=== PATIENT | male | born 1940 | race Asian ===

== ENCOUNTER 2017-11-09 23:08 | Inpatient (IN) | payer MEDICAID, OTHER ==
[~2017-11-09] VITALS: Ht 165.1 cm; Wt 85.3 kg
[~2017-11-09 23:08] MED LIST: AMLO-27 PO; ASPI81CT89 PO; COZ50 PO; HYDR-1098 PO; LORA1TAB7; MECL-221 PO; MELO15TA11 PO; METF500T4 PO; TAMS0.4C96 PO
[2017-11-09 23:18] VITALS: BP 157/76
--- NOTE | 2017-11-09 23:23 | NUR ---
PT.AMBULATED TO [facility]
--- NOTE | 2017-11-10 00:07 | NUR ---
Patient ambulated to bed 12. RN evaluating patient at bedside.
--- NOTE | 2017-11-10 00:09 | NUR ---
PATIENT PRESENTS TO ED WITH URINARY FREQUENCY, FLANK PAIN X1 MONTH. PT DENIES N/V/D; SKIN IS PINK/WARM/DRY; AAOX4 WITH EVEN AND STEADY GAIT; LUNGS CLEAR BL; HR EVEN AND REGULAR; PT DENIES ANY FEVER, CP, SOB, OR COUGH AT THIS TIME; PATIENT STATES PAIN OF 10/10 AT THIS TIME; VSS; PATIENT POSITIONED FOR COMFORT; HOB ELEVATED; BEDRAILS UP X1; BED DOWN. ER MD MADE AWARE OF PT STATUS.
[2017-11-10] MEDS ORDERED: DIT5 PO (00:28)
[2017-11-10] MEDS ORDERED: FINA5TAB1 PO (00:28)
[2017-11-10] MEDS ORDERED: LOSA100T25 PO (00:28)
[2017-11-10] MEDS ORDERED: CLOP75TA55 PO (00:28)
[2017-11-10 00:47] LABS: APPEARANCE,URINE CLEAR (CLEAR); BILIRUBIN,URINE NEGATIVE (NEGATIVE); BLOOD, URINE 1+ (NEGATIVE); COLOR,URINE YELLOW (YELLOW); LEUKOCYTE ESTERASE ,URINE NEGATIVE (NEGATIVE); NITRITE, URINE NEGATIVE (NEGATIVE); PH,URINE 5.5 (5.0-9.0); UGLUCOSE NEGATIVE (NEGATIVE)
[2017-11-10 00:57] LABS: RBC,URINE NONE SEEN /HPF (0-5); WBC,URINE 0-5 (RARE) /HPF (0-5)
[2017-11-10] MEDS ORDERED: OXYBUTYNIN 5 MG TAB PO SCH (01:05)
[2017-11-10 01:24] LABS: BASOPHILS # (AUTO) 0.1 K/uL (0.00-0.22); BASOPHILS % (AUTO) 0.6 % (0.0-2.0); EOSINOPHILS # (AUTO) 3.1 K/uL (0-0.4); HEMATOCRIT 37.8 % (36-52); HEMOGLOBIN 12.9 g/dL (12.0-18.0); LYMPHOCYTES # (AUTO) 2.6 K/uL (2.0-11.5); LYMPHOCYTES % (AUTO) 14.6 % (20.5-51.1); MEAN CORPUSCULAR HEMOGLOBIN 32 pg (27-31); MEAN CORPUSCULAR HGB CONC 34 g/dL (33-37); MONOCYTES # (AUTO) 1.9 K/uL (0.8-1.0); MONOCYTES % (AUTO) 10.5 % (1.7-9.3); NEUTROPHILS # (AUTO) 10.2 K/uL (1.8-7.7); NEUTROPHILS % (AUTO) 56.9 % (42.2-75.2); PLATELET COUNT (AUTO) 339 K/uL (140-450); RED BLOOD CELL COUNT(AUTO) 4.06 MIL/uL (4.20-6.10); RED CELL DISTRIBUTION WIDTH 12.2 % (11.6-13.7)
--- NOTE | 2017-11-10 01:25 | NUR ---
MEDICATION UNAVAILABLE. ER MD AWARE.
[2017-11-10 01:31] LABS: WHITE BLOOD COUNT (AUTO) 17.9 K/uL (4.8-10.8)
[2017-11-10 01:32] LABS: EOSINOPHILS % (AUTO) 17.4 % (0.0-4.0)
--- NOTE | 2017-11-10 01:33 | NUR ---
Kathie kim in [facility] - 11/10/17 at 0133 by WILMA PATIENT BACK FROM CT
--- NOTE | 2017-11-10 01:35 | NUR ---
PATIENT TO CT
[2017-11-10 01:39] LABS: ALBUMIN 4.6 g/dL (3.4-5.0); ANION GAP 16.2 (8-16); ASPARTATE AMINOTRANSFERASE 59 U/L (15-37); CHLORIDE 83 mmol/L (98-107); CREATININE 1.9 mg/dL (0.7-1.3); GLUCOSE 143 mg/dL (74-106); LIPASE 174 U/L (73-393); TOTAL BILIRUBIN 0.7 mg/dL (0.0-1.0); UREA NITROGEN, BLOOD 26 mg/dL (7-18)
[2017-11-10 01:42] LABS: POTASSIUM 5.2 mmol/L (3.5-5.1); SODIUM SERUM 119 mmol/L (136-145)
--- NOTE | 2017-11-10 01:53 | NUR ---
PATIENT BACK FROM CT
[2017-11-10] MEDS ORDERED: NACL 0.9% 1,000 ML IV ONE (02:10)
--- NOTE | 2017-11-10 02:57 | NUR ---
SPOKE TO DR ROMERO, TO ADMIT THROUGH DR RUTH COLEMAN
[2017-11-10] MEDS ORDERED: ACETAMINOPHEN 325 MG TAB PO PRN (03:00)
[2017-11-10] MEDS ORDERED: HYDROcodone/APAP 7.5/325 MG 1 TAB PO PRN (03:00)
[2017-11-10] MEDS ORDERED: ONDANSETRON 4 MG/2 ML VIAL IVP PRN (03:00)
[2017-11-10 03:18] LABS: PROTHROMBIN TIME 10.6 secs (10.8-13.4)
[2017-11-10 03:29] LABS: CHOL/HDL RATIO 2.5 (1-4.5); FREE T4 (FREE THYROXINE) 1.15 ng/dL (0.76-1.46); PHOSPHORUS 3.9 mg/dL (2.5-4.9); THYROID STIMULATING HORMONE 3.05 uIU/mL (0.34-3.74)
--- NOTE | 2017-11-10 03:31 | NUR ---
PT ARRIVED AT UNIT VIA GURNEY, TRANSFERRED PT TO BED, PT TOLERATED WELL, RECEIVED BEDSIDE REPORT FROM ER NURSE SHARLENE RN, PT STABLE, NO DISTRESS NOTED, IV TO RAC 20G RUNNING NS BOLUS, INFUSING WELL, PT ON ROOM AIR NO SOB, FAMILY BY BEDSIDE, INITIAL ASSESSMENT DONE, ALL SAFETY PRECAUTION MET, WILL CONTINUE TO MONITOR.
[2017-11-10 03:50] VITALS: BP 162/70
--- NOTE | 2017-11-10 04:00 | NUR ---
Pt report given to IVAN GAO. Transfer of care at this time.
--- NOTE | 2017-11-10 04:25 | NUR ---
PT C/O DISCOMFORT WITH SUN, PT STATED WANTED THE SUN OUT, NOTIFIED DR. ULLOA REGARDING PT COMPLAINT, STATED UNDERSTANDING, TO D/C THE SUN AND LET PT USE URINAL TO URINATE. SUN D/C, PT TOLERATED WELL, CATH INTACT, PT THEN PROCEED TO PEE ON URINAL. URINATED 5ML OF URINE, PT TOLERATED WELL. WILL CONTINUE TO MONITOR.
[2017-11-10] MEDS ORDERED: DEXTROSE 50% 50 ML SYR IVP PRN (04:50)
[2017-11-10] MEDS ORDERED: amLODIPine 5 MG TAB ONE (05:15)
[2017-11-10] MEDS ORDERED: METOPROLOL 25 MG TAB ONE (05:17)
[2017-11-10] MEDS: METOPROLOL 25 MG TAB PO SCH ×3 (05:20→20:52)
[2017-11-10] MEDS: amLODIPine 5 MG TAB PO SCH ×2 (05:21→09:13)
[2017-11-10] MEDS: NACL 0.9% 1,000 ML IV SCH ×2 (05:24→20:30)
[2017-11-10] MEDS: BLOOD GLUCOSE MONITORING 1 DEV DEV FS SCH ×4 (06:07→20:54)
[2017-11-10] MEDS: INSULIN LISPRO SLIDING SCALE 100 UNITS/ML VIAL SUBQ PRN ×2 (06:08→18:33)
--- NOTE | 2017-11-10 06:10 | NUR ---
PT AMBULATED TO BATHROOM AND BACK TO BED, NO DISTRESS NOTED, CALL LIGHT WITHIN REACH, WILL CONTINUE TO MONITOR.
[2017-11-10 06:30] LABS: BASOPHILS # (AUTO) 0.1 K/uL (0.00-0.22); BASOPHILS % (AUTO) 0.3 % (0.0-2.0); EOSINOPHILS # (AUTO) 2.3 K/uL (0-0.4); EOSINOPHILS % (AUTO) 12.8 % (0.0-4.0); HEMATOCRIT 36.5 % (36-52); HEMOGLOBIN 12.4 g/dL (12.0-18.0); LYMPHOCYTES # (AUTO) 1.4 K/uL (2.0-11.5); LYMPHOCYTES % (AUTO) 7.8 % (20.5-51.1); MEAN CORPUSCULAR HEMOGLOBIN 32 pg (27-31); MEAN CORPUSCULAR HGB CONC 34 g/dL (33-37); MEAN CORPUSCULAR VOLUME 93.1 fL (80-94); MONOCYTES # (AUTO) 1.9 K/uL (0.8-1.0); MONOCYTES % (AUTO) 10.9 % (1.7-9.3); NEUTROPHILS # (AUTO) 12.1 K/uL (1.8-7.7); NEUTROPHILS % (AUTO) 68.2 % (42.2-75.2); PLATELET COUNT (AUTO) 314 K/uL (140-450); RED BLOOD CELL COUNT(AUTO) 3.92 MIL/uL (4.20-6.10); RED CELL DISTRIBUTION WIDTH 12.3 % (11.6-13.7); WHITE BLOOD COUNT (AUTO) 17.8 K/uL (4.8-10.8)
[2017-11-10 07:04] LABS: ANION GAP 14.9 (8-16); CARBON DIOXIDE 25.9 mmol/L (21-32); CHLORIDE 86 mmol/L (98-107); CREATININE 1.7 mg/dL (0.7-1.3); GLUCOSE 168 mg/dL (74-106); POTASSIUM 4.8 mmol/L (3.5-5.1); UREA NITROGEN, BLOOD 23 mg/dL (7-18)
--- NOTE | 2017-11-10 07:20 | NUR ---
ENDORSED PLAN OF CARE TO DAY SHIFT NURSE YAQUELIN RN, PT STABLE, NO DISTRESS NOTED, CALL LIGHT WITHIN REACH.
[2017-11-10 07:21] LABS: MAGNESIUM 1.7 mg/dL (1.8-2.4); PHOSPHORUS 3.6 mg/dL (2.5-4.9)
--- NOTE | 2017-11-10 07:22 | NUR ---
RECEIVED BEDSIDE REPORT FROM BANKING SERVICES ADVISOR NURSE. PATIENT IS AWAKE. ALERT AND ORIENTEDX2, HE KNOWS NAME AND BUT NOT AWARE OF DATE AND PLACE. NO COMPLAINTS AT THIS TIME. NO S/SX OF DISTRESS ON ROOM AIR. TELE MONITOR IN PLACE. IV IN R AC 20G INFUSING NS AT 80ML/HR. IV IS CLEAN, DRY, AND INTACT. SKIN IS INTACT. URINAL AT BEDSIDE. BED IN LOW POSITION,CALL LIGHT WITHIN REACH. BED ALARM ON. PATIENT NPO UNTIL ULTRASOUND AROUND 10AM. WILL CONTINUE TO MONITOR PATIENT.
[2017-11-10 08:00] VITALS: BP 126/54
[2017-11-10] MEDS ORDERED: metFORMIN 500 MG TAB PO SCH (08:00)
[2017-11-10 08:28] LABS: SODIUM SERUM 122 mmol/L (136-145)
--- NOTE | 2017-11-10 08:44 | NUR ---
PATIENT HAS BEEN SCREENED AND CATEGORIZED MODERATE NUTRITION RISK. PATIENT WILL BE SEEN WITHIN 3-5 DAYS OF ADMISSION. 11/12/17 - 11/14/[address]
[2017-11-10] MEDS ORDERED: LOSARTAN 50 MG TAB PO SCH (09:00)
[2017-11-10] MEDS: CLOPIDOGREL 75 MG TAB PO SCH (09:12)
[2017-11-10] MEDS: FINASTERIDE 5 MG TAB PO SCH (09:13)
[2017-11-10] MEDS: DOCUSATE SODIUM 100 MG GELCAP PO SCH ×2 (09:13→20:50)
[2017-11-10] MEDS: ASPIRIN 81 MG TAB.CHEW PO SCH (09:14)
--- NOTE | 2017-11-10 09:15 | NUR ---
ADMINISTERED MORNING MEDS. PATIENT TOLERATED MEDS WELL. NO COMPLAINTS AT THIS TIME. ULTRASOUND AT BEDSIDE. WILL CONTINUE TO MONITOR PATIENT.
--- NOTE | 2017-11-10 11:30 | NUR ---
PATIENT REFUSED BLE ULTRASOUND. ECHO IN THE ROOM, GETTING READY FOR THE ECHO. RECEIVED A URINE SAMPLE FROM THE PATIENT. WILL SEND TO LAB. WILL CONTINUE TO MONITOR PATIENT.
--- NOTE | 2017-11-10 11:41 | NUR ---
CM NOTE INITIAL REVIEW DONE
[2017-11-10 12:00] VITALS: BP 134/59
--- NOTE | 2017-11-10 13:50 | NUR ---
PATIENT CURRENTLY SLEEPING. NO S/SX OF DISTRESS ON ROOM AIR. BED IN LOW POSITION, CALL LIGHT WITHIN REACH, WILL CONTINUE TO MONITOR PATIENT.
[2017-11-10] MEDS ORDERED: MAG SULF 2000 MG/WATER PREMIX 50 ML IV SCH (14:29)
--- NOTE | 2017-11-10 15:02 | NUR ---
ADMINISTERED NEEDED MAGNESIUM. IV SITE IS CLEAN, DRY AND INTACT. PATIENT TOLERATING MEDS WELL. NO COMPLAINTS AT THIS TIME. PATIENT REQUESTED TO TALK TO HIS DAUGHTER AGAIN BUT NO ANSWER. WILL TRY TO CALL HER AGAIN LATER. BED IN LOW POSITION. CALL LIGHT WITHIN REACH. WILL CONTINUE TO MONITOR PATIENT.
[2017-11-10 16:00] VITALS: BP 149/56
--- NOTE | 2017-11-10 16:00 | NUR ---
PATIENT REFUSED TO PLACE SCDS ON. HE STATED THERE WAS NO NEED FOR SCDS.
--- NOTE | 2017-11-10 17:00 | NUR ---
PAGED DR MCKEON FROM [facility] REQUESTED FOR UPDATE OF LABS. NO CALL BACK. WILL TELL BALE TIE MACHINE OPERATOR NURSE TO AWAIT A CALL BACK.
[2017-11-10 18:10] LABS: CARBON DIOXIDE 26.5 mmol/L (21-32); CHLORIDE 89 mmol/L (98-107); CREATININE 1.4 mg/dL (0.7-1.3); GLUCOSE 147 mg/dL (74-106); SODIUM SERUM 125 mmol/L (136-145); UREA NITROGEN, BLOOD 24 mg/dL (7-18)
[2017-11-10 18:13] LABS: POTASSIUM 5.5 mmol/L (3.5-5.1)
--- NOTE | 2017-11-10 19:20 | NUR ---
ENDORSED PATIENT IN STABLE CONDITION. GAVE BOOK AUTHOR NURSE BEDSIDE REPORT.
--- NOTE | 2017-11-10 19:21 | NUR ---
RECEIVED BEDSIDE REPORT FROM DAY SHIFT NURSE YAQUELIN RN, PT STABLE, NO DISTRESS NOTED, IV TO RAC 20G RUNNING NS @ 50ML/HR, PT ON ROOM AIR, NO SOB, PT AMBULATED TO BATHROOM, GAIT STEADY, INITIAL ASSESSMENT DONE, ALL SAFETY PRECAUTION MET, WILL CONTINUE TO MONITOR.
[2017-11-10 20:00] VITALS: BP 130/60
--- NOTE | 2017-11-10 20:01 | NUR ---
PT STATED FEELING DIZZY, DR. ULLOA NOTIFIED, DR, STATED UNDERSTANDING AND WILL ORDER MEDICATION. WILL WAIT FOR ORDER TO GET THROUGH PHARMACY AND CONTINUE WITH ORDERS.
[2017-11-10] MEDS ORDERED: MECLIZINE 25 MG TAB PO PRN (20:05)
[2017-11-10] MEDS: OXYBUTYNIN 5 MG TAB PO SCH (20:50)
[2017-11-10] MEDS: TAMSULOSIN 0.4 MG CAP PO SCH (20:51)
--- NOTE | 2017-11-10 20:54 | NUR ---
DUE MEDICATION GIVEN, PT TOLERATED WELL, NO DISTRESS NOTED, WHEN ASKED IF PT IS STILL DIZZY, PT STATED HE IS NO LONGER DIZZY, PT RESTING ON BED, CALL LIGHT WITHIN REACH, WILL CONTINUE TO MONITOR.
--- NOTE | 2017-11-10 22:25 | NUR ---
PT KEEPS GOING TO THE RESTROOM TO URINATE DESPITE EDUCATED THAT WE NEED TO COLLECT URINE AND WE NEED TO DO STRICT INPUT AND OUTPUT
[2017-11-11] VITALS: BP 107/55
--- NOTE | 2017-11-11 00:20 | NUR ---
CHECKED ON PT, PT SLEEPING, NO DISTRESS NOTED, CALL LIGHT WITHIN REACH, WILL CONTINUE TO MONITOR.
--- NOTE | 2017-11-11 03:07 | NUR ---
PT GOT UP AND WENT TO THE BATHROOM, PT WOULD NOT URINATE ON URINAL, UNABLE TO GET ANY URINE SAMPLE, PT STATED HE CAN NOT URINATE IN THE URINAL AND TOLD THE NURSE TO GO AWAY, HE WANTS TO URINATE IN THE RESTROOM.
[2017-11-11 04:00] VITALS: BP 101/44
--- NOTE | 2017-11-11 04:02 | NUR ---
CHECKED ON PT, PT IN BED SLEEPING CALMLY, NO DISTRESS NOTED, CALL LIGHT WITHIN REACH, WILL CONTINUE TO MONITOR.
[2017-11-11] MEDS: BLOOD GLUCOSE MONITORING 1 DEV DEV FS SCH ×4 (06:07→20:52)
--- NOTE | 2017-11-11 06:07 | NUR ---
PT AMBULATED TO RESTROOM AND BACK, PT TOLERATED WELL, NO DISTRESS NOTED, CALL LIGHT WITHIN REACH, WILL CONTINUE TO MONITOR. URINE COLLECTED, SENT TO LAB.
[2017-11-11 07:17] LABS: BASOPHILS # (AUTO) 0.1 K/uL (0.00-0.22); BASOPHILS % (AUTO) 0.6 % (0.0-2.0); EOSINOPHILS # (AUTO) 2.2 K/uL (0-0.4); EOSINOPHILS % (AUTO) 15.9 % (0.0-4.0); HEMATOCRIT 34.4 % (36-52); HEMOGLOBIN 11.7 g/dL (12.0-18.0); LYMPHOCYTES # (AUTO) 1.7 K/uL (2.0-11.5); LYMPHOCYTES % (AUTO) 12.4 % (20.5-51.1); MEAN CORPUSCULAR HEMOGLOBIN 32 pg (27-31); MEAN CORPUSCULAR HGB CONC 34 g/dL (33-37); MEAN CORPUSCULAR VOLUME 93.8 fL (80-94); MONOCYTES # (AUTO) 1.2 K/uL (0.8-1.0); MONOCYTES % (AUTO) 8.4 % (1.7-9.3); NEUTROPHILS # (AUTO) 8.9 K/uL (1.8-7.7); NEUTROPHILS % (AUTO) 62.7 % (42.2-75.2); PLATELET COUNT (AUTO) 313 K/uL (140-450); RED BLOOD CELL COUNT(AUTO) 3.67 MIL/uL (4.20-6.10); RED CELL DISTRIBUTION WIDTH 12.2 % (11.6-13.7); WHITE BLOOD COUNT (AUTO) 14.1 K/uL (4.8-10.8)
--- NOTE | 2017-11-11 07:29 | NUR ---
ENDORSED PLAN OF CARE TO DAY SHIFT NURSE YAQUELIN RN, PT STABLE, NO DISTRESS NOTED, CALL LIGHT WITHIN REACH.
--- NOTE | 2017-11-11 07:31 | NUR ---
RECEIVED BEDSIDE REPORT FROM SKIP LOCATOR NURSE. PATIENT IS AWAKE, ALERT AND ORIENTEDX3. PATIENT SHOWS NO SIGNS OF DISTRESS ON ROOM AIR. IV ON RAC SL. IV ON L FOREARM INFUSING NS AT 50ML/HR. IV SITE IS CLEAN, DRY AND INTACT. CARDIAC CATHETER IN PLACE. URINAL AT BEDSIDE. BED IN LOW POSITION. CALL LIGHT WITHIN REACH, WILL CONTINUE TO MONITOR PATIENT.
[2017-11-11 07:34] LABS: ANION GAP 18.7 (8-16); CARBON DIOXIDE 19.1 mmol/L (21-32); CHLORIDE 90 mmol/L (98-107); CREATININE 1.4 mg/dL (0.7-1.3); GLUCOSE 142 mg/dL (74-106); POTASSIUM 4.8 mmol/L (3.5-5.1); UREA NITROGEN, BLOOD 22 mg/dL (7-18)
[2017-11-11 08:00] VITALS: BP 118/58
[2017-11-11 08:37] LABS: SODIUM SERUM 123 mmol/L (136-145)
[2017-11-11] MEDS: ASPIRIN 81 MG TAB.CHEW PO SCH (09:03)
[2017-11-11] MEDS: amLODIPine 5 MG TAB PO SCH (09:04)
[2017-11-11] MEDS: FINASTERIDE 5 MG TAB PO SCH (09:04)
[2017-11-11] MEDS: DOCUSATE SODIUM 100 MG GELCAP PO SCH ×2 (09:04→20:58)
[2017-11-11] MEDS: CLOPIDOGREL 75 MG TAB PO SCH (09:04)
[2017-11-11] MEDS: METOPROLOL 25 MG TAB PO SCH ×2 (09:05→20:58)
--- NOTE | 2017-11-11 09:14 | NUR ---
ADMINISTERED MORNING MEDS. PATIENT TOLERATED MEDS WELL. STRICT NO WATER ORDERED BY DOCTOR IN PLACE. REMOVED WATER FROM TABLE. EDUCATED PATIENT ON NO WATER DIET. HE VERBALIZED UNDERSTANDING BUT WILL CONTINUE TO EDUCATE PATIENT. NO COMPLAINTS AT THIS TIME. BED IN LOW POSITION. CALL LIGHT WITHIN REACH.
--- NOTE | 2017-11-11 10:46 | NUR ---
PATIENT COMPLAINS OF DIZZINESS. ADMINISTERED PRN MEDICATIONS. EDUCATED THE PATIENT ON THE IMPORTANCE OF SITTING DOWN AND STAYING IN BED IF HE FEELS DIZZY. PATIENT VERBALIZED UNDERSTANDING BUT REINFORCEMENT NEEDED. WILL CONTINUE TO MONITOR PATIENT. PLACED THE URINAL BACK AT BEDSIDE.
--- NOTE | 2017-11-11 11:26 | NUR ---
PATIENT CURRENTLY SLEEPING. NO S/SX OF DISTRESS ON ROOM AIR. BED IN LOW POSITION. CALL LIGHT WITHIN REACH, WILL CONTINUE TO MONITOR PATIENT.
[2017-11-11 12:00] VITALS: BP 123/47
[2017-11-11 12:31] LABS: URINE SODIUM, RANDOM 37 mmol/l (40-220)
[2017-11-11 12:37] LABS: CREATININE,URINE RANDOM 80 mg/dL (30-125)
[2017-11-11] MEDS ORDERED: SODIUM CHLORIDE 1 GM TAB PO SCH (13:00)
--- NOTE | 2017-11-11 13:02 | NUR ---
ADMINISTERED PRN SALT TABLETS. PATIENT TOLERATED MEDS WELL. FAMILY AT BEDSIDE. NO COMPLAINTS AT THIS TIME. WILL CONTINUE TO MONITOR PATIENT.
[2017-11-11] MEDS: NACL 0.9% 1,000 ML IV SCH (14:47)
--- NOTE | 2017-11-11 14:50 | NUR ---
PATIENT IS SLEEPING. NO S/SX OF DISTRESS ON ROOM AIR. BED IN LOW POSITION. CALL LIGHT WITHIN REACH. WILL CONTINUE TO MONITOR PATIENT.
[2017-11-11 16:00] VITALS: BP 122/49
[2017-11-11] MEDS: SODIUM CHLORIDE 1 GM TAB PO SCH (16:58)
--- NOTE | 2017-11-11 17:03 | NUR ---
REMOVED RIGHT AC IV. IV WAS INTACT. NO COMPLAINTS. ADMINISTERED MEDS ORDERED. PATIENT TOLERATED MEDS WELL. WILL CONTINUE TO MONITOR PATIENT.
[2017-11-11 17:28] LABS: ANION GAP 15.4 (8-16); CARBON DIOXIDE 24.7 mmol/L (21-32); CHLORIDE 91 mmol/L (98-107); CREATININE 1.4 mg/dL (0.7-1.3); GLUCOSE 137 mg/dL (74-106); POTASSIUM 5.1 mmol/L (3.5-5.1); SODIUM SERUM 126 mmol/L (136-145); UREA NITROGEN, BLOOD 24 mg/dL (7-18)
--- NOTE | 2017-11-11 19:30 | NUR ---
RECEIVED PATIENT REPORT AT BEDSIDE. PATIENT AWAKE AND ALERT IN BED. NO S/S OF DISTRESS. PATIENT ON ROOM AIR. NO SOB. IV LINE NOTED TO THE LEFT FOREARM WITH IVF INFUSING WELL. PATIENT ON TELE MONITORING. FALL PRECAUTIONS IN PLACE. WILL CONTINUE TO MONITOR
--- NOTE | 2017-11-11 19:45 | NUR ---
GAVE FLOOR TILING PROFESSIONAL NURSE REPORT. PATIENT IS IN STABLE CONDITION.
[2017-11-11 20:55] VITALS: BP 165/67
[2017-11-11] MEDS: TAMSULOSIN 0.4 MG CAP PO SCH (20:58)
[2017-11-11] MEDS: OXYBUTYNIN 5 MG TAB PO SCH (20:58)
[2017-11-11] MEDS: INSULIN LISPRO SLIDING SCALE 100 UNITS/ML VIAL SUBQ PRN (20:59)
--- NOTE | 2017-11-11 23:29 | NUR ---
PATIENT ASLEEP IN BED. NO S/S OF DISTRESS NOTED
[2017-11-12] VITALS: BP 97/35
--- NOTE | 2017-11-12 | NUR ---
PATIENT'S BP 97/35. PATIENT AWAKE IN BED. NO S/S OF DISTRESS. PATIENT DENIES ANY DISCOMFORT. NOTIFIED DR ULLOA. NO NEW ORDERS. WILL CONTINUE TO MONITOR
--- NOTE | 2017-11-12 02:00 | NUR ---
PATIENT AWAKE AND AMBULATED TO THE BATHROOM TO VOID. PATIENT WAS PROVIDED A URINAL BUT DOES NOT USE IT.
[2017-11-12 04:00] VITALS: BP 131/51
[2017-11-12] MEDS: BLOOD GLUCOSE MONITORING 1 DEV DEV FS SCH ×4 (06:07→20:25)
--- NOTE | 2017-11-12 07:29 | NUR ---
PATIENT REPORT GIVEN AT BEDSIDE. PATIENT ENDORSED IN STABLE CONDITION
--- NOTE | 2017-11-12 07:50 | NUR ---
ENDORSEMENT RECEIVED FROM LIFE TESTER OUTBOARD MOTORS NURSE. PATIENT IS AWAKE, ALERT. RESPIRATION EVEN, UNLABOR ON ROOM AIR. SKIN DRY AND WARM. IV PATENT AND INTACT. DENIED PAIN, SOB, N/V. COMPLAINED OF DIFFICULTY URINATING, WILL CONTINUE TO MONITOR. PLAN OF CARE WAS DISCUSSED WITH PATIENT. BED AT LOW POSITION, SIDE RAILS UP. CALL LIGHT WITHIN REACH.
[2017-11-12 08:00] VITALS: BP_SYST 117; BP_SYST 143; BP_DIAS 51; BP_DIAS 62
[2017-11-12 08:44] LABS: BASOPHILS # (AUTO) 0.1 K/uL (0.00-0.22); EOSINOPHILS # (AUTO) 2.7 K/uL (0-0.4); HEMATOCRIT 33.8 % (36-52); HEMOGLOBIN 11.5 g/dL (12.0-18.0); LYMPHOCYTES % (AUTO) 14.8 % (20.5-51.1); MEAN CORPUSCULAR HEMOGLOBIN 32 pg (27-31); MEAN CORPUSCULAR HGB CONC 34 g/dL (33-37); MEAN CORPUSCULAR VOLUME 94.9 fL (80-94); MONOCYTES # (AUTO) 1.3 K/uL (0.8-1.0); MONOCYTES % (AUTO) 9.5 % (1.7-9.3); NEUTROPHILS # (AUTO) 7.3 K/uL (1.8-7.7); NEUTROPHILS % (AUTO) 54.5 % (42.2-75.2); PLATELET COUNT (AUTO) 339 K/uL (140-450); RED BLOOD CELL COUNT(AUTO) 3.57 MIL/uL (4.20-6.10); RED CELL DISTRIBUTION WIDTH 12.1 % (11.6-13.7); WHITE BLOOD COUNT (AUTO) 13.4 K/uL (4.8-10.8)
[2017-11-12] MEDS ORDERED: SODIUM CHLORIDE 1 GM TAB PO SCH (09:00)
[2017-11-12 09:06] LABS: ANION GAP 14.2 (8-16); CARBON DIOXIDE 25.8 mmol/L (21-32); CHLORIDE 91 mmol/L (98-107); CREATININE 1.3 mg/dL (0.7-1.3); GLUCOSE 134 mg/dL (74-106); SODIUM SERUM 126 mmol/L (136-145); UREA NITROGEN, BLOOD 20 mg/dL (7-18)
[2017-11-12 09:17] LABS: EOSINOPHILS % (AUTO) 20.2 % (0.0-4.0)
[2017-11-12] MEDS: SODIUM CHLORIDE 1 GM TAB PO SCH ×3 (09:56→17:01)
[2017-11-12] MEDS: DOCUSATE SODIUM 100 MG GELCAP PO SCH ×2 (09:56→20:22)
[2017-11-12] MEDS: amLODIPine 5 MG TAB PO SCH (09:57)
[2017-11-12] MEDS: ASPIRIN 81 MG TAB.CHEW PO SCH (09:58)
[2017-11-12] MEDS: FINASTERIDE 5 MG TAB PO SCH (09:58)
[2017-11-12] MEDS: CLOPIDOGREL 75 MG TAB PO SCH (09:58)
[2017-11-12] MEDS: NACL 0.9% 1,000 ML IV SCH (11:05)
--- NOTE | 2017-11-12 11:52 | NUR ---
PATIENT IS SLEEPING COMFORTABLY, EASILY AROUSABLE BY NAME. RESPIRATION EVEN, UNLABOR ON ROOM AIR. DENIED PAIN AT THIS TIME. NO DISTRESS NOTED. CALL LIGHT WITHIN REACH
[2017-11-12 12:00] VITALS: BP 143/62
[2017-11-12] MEDS: INSULIN LISPRO SLIDING SCALE 100 UNITS/ML VIAL SUBQ PRN ×3 (12:30→21:11)
--- NOTE | 2017-11-12 14:45 | NUR ---
BLADDER SCAN WAS DONE, 553 ML OF URINE WAS NOTED. PATIENT COMPLAINED OF DYSURIA, AND BLADDER PAIN. DR. SCOTT WAS MADE AWARE.
--- NOTE | 2017-11-12 15:16 | NUR ---
SUN WAS INSERTED. 500ML OF URINE, CLEAR, EDWARD COLOR WAS DRAINED. PATIENT TOLERATED WELL
[2017-11-12 16:00] VITALS: BP 130/67
--- NOTE | 2017-11-12 16:27 | NUR ---
PATIENT IS SLEEPING COMFORTABLY. RESPIRATION EVEN, UNLABOR ON ROOM AIR. NO DISTRESS NOTED. VS IS STABLE. CALL LIGHT WITHIN REACH.
--- NOTE | 2017-11-12 18:43 | NUR ---
PATIENT AWAKE, ALERT. RESPIRATION EVEN, UNLABOR ON ROOM AIR. IV PATENT AND INTACT. NO DISTRESS NOTED AT THIS TIME. CALL LIGHT WITHIN REACH
--- NOTE | 2017-11-12 19:14 | NUR ---
ENDORSEMENT GIVEN TO PACKING LINE WORKER NURSE. PATIENT IS STABLE AT THIS TIME.
--- NOTE | 2017-11-12 19:30 | NUR ---
RECEIVED PATIENT REPORT AT BEDSIDE. PATIENT AWAKE AND ALERT IN BED. NO S/S OF DISTRESS. PATIENT ON ROOM AIR. NO SOB. SUN CATHETER IN PLACE, DRAINING CLEAR YELLOW URINE. PATIENT ON TELE MONITORING. FALL PRECAUTIONS IN PLACE. WILL CONTINUE TO MONITOR
[2017-11-12 19:49] VITALS: BP 121/61
[2017-11-12] MEDS: TAMSULOSIN 0.4 MG CAP PO SCH (20:22)
[2017-11-12] MEDS: OXYBUTYNIN 5 MG TAB PO SCH (20:22)
--- NOTE | 2017-11-12 23:06 | NUR ---
PATIENT ASLEEP IN BED. NO S/S OF DISTRESS NOTED
[2017-11-13] VITALS: BP 135/62
--- NOTE | 2017-11-13 02:00 | NUR ---
PATIENT ASLEEP IN BED. NO S/S OF DISTRESS NOTED
[2017-11-13 04:00] VITALS: BP 125/58
--- NOTE | 2017-11-13 04:30 | NUR ---
PATIENT CURRENTLY SLEEPING. NO S/SX OF DISTRESS ON ROOM AIR. BED IN LOW POSITION. CALL LIGHT WITHIN REACH, WILL CONTINUE TO MONITOR PATIENT.
[2017-11-13] MEDS: BLOOD GLUCOSE MONITORING 1 DEV DEV FS SCH ×3 (06:13→16:19)
--- NOTE | 2017-11-13 07:17 | NUR ---
PATIENT REPORT GIVEN AT BEDSIDE. PATIENT ENDORSED IN STABLE CONDITION
--- NOTE | 2017-11-13 07:30 | NUR ---
ENDORSEMENT RECEIVED FROM TRAILER CHIEF NURSE. PATIENT AWAKE, ALERT. RESPIRATION EVEN, UNLABOR ON ROOM AIR. SKIN DRY AND WARM. IV PATENT AND INTACT. DENIED PAIN AT THIS TIME. SUN DRAINING WELL. VS IS STABLE. PLAN OF CARE WAS DISCUSSED WITH PATIENT. BED AT LOW POSITION, SIDE RAILS UP. CALL LIGHT WITHIN REACH
[2017-11-13 08:00] VITALS: BP 162/71
[2017-11-13 08:25] LABS: HEMOGLOBIN 11.3 g/dL (12.0-18.0); MEAN CORPUSCULAR HEMOGLOBIN 32 pg (27-31); RED BLOOD CELL COUNT(AUTO) 3.49 MIL/uL (4.20-6.10); RED CELL DISTRIBUTION WIDTH 11.3 % (11.6-13.7)
[2017-11-13 08:36] LABS: HEMATOCRIT 32.9 % (36-52); MEAN CORPUSCULAR HGB CONC 34 g/dL (33-37); MEAN CORPUSCULAR VOLUME 94.3 fL (80-94); PLATELET COUNT (AUTO) 326 K/uL (140-450); WHITE BLOOD COUNT (AUTO) 13.7 K/uL (4.8-10.8)
[2017-11-13 08:43] LABS: ANION GAP 11.7 (8-16); CARBON DIOXIDE 26.8 mmol/L (21-32); CHLORIDE 96 mmol/L (98-107); CREATININE 1.2 mg/dL (0.7-1.3); GLUCOSE 125 mg/dL (74-106); POTASSIUM 4.5 mmol/L (3.5-5.1); SODIUM SERUM 130 mmol/L (136-145); UREA NITROGEN, BLOOD 16 mg/dL (7-18)
[2017-11-13] MEDS: DOCUSATE SODIUM 100 MG GELCAP PO SCH (09:00)
[2017-11-13] MEDS: SODIUM CHLORIDE 1 GM TAB PO SCH ×3 (09:24→16:52)
[2017-11-13] MEDS: amLODIPine 5 MG TAB PO SCH (09:25)
[2017-11-13] MEDS: CLOPIDOGREL 75 MG TAB PO SCH (09:25)
[2017-11-13] MEDS: ASPIRIN 81 MG TAB.CHEW PO SCH (09:25)
[2017-11-13] MEDS: FINASTERIDE 5 MG TAB PO SCH (09:25)
[2017-11-13] MEDS: NACL 0.9% 1,000 ML IV SCH (09:26)
[2017-11-13 09:38] LABS: BASOPHILS % (MANUAL) 0 % (0-2); EOSINOPHILS % (MANUAL) 22 % (0-4); LYMPHOCYTES % (MANUAL) 14 % (20-46); MONOCYTES % (MANUAL) 8 % (5-12)
--- NOTE | 2017-11-13 10:00 | NUR ---
SUN CATHETER WAS CLAMPED. PATIENT WAS INSTRUCTED TO GO TO BATHROOM NEEDED AND REPORT ANY DYSURIA OR BLADDER PAIN. CALL LIGHT WITHIN REACH
--- NOTE | 2017-11-13 11:12 | NUR ---
PATIENT IS SLEEPING COMFORTABLY. RESPIRATION EVEN, UNLABOR ON ROOM AIR. NO DISTRESS NOTED AT THIS TIME. CALL LIGHT WITHIN REACH
--- NOTE | 2017-11-13 11:47 | NUR ---
DR. SHEEHAN WAS MADE AWARE OF PATIENT'S MG 1.7, WILL MEDICATE PER ORDER
[2017-11-13 12:00] VITALS: BP 158/72
[2017-11-13] MEDS ORDERED: MAGNESIUM OXIDE 400 MG TAB PO SCH (12:00)
[2017-11-13] MEDS: INSULIN LISPRO SLIDING SCALE 100 UNITS/ML VIAL SUBQ PRN (12:28)
--- NOTE | 2017-11-13 15:30 | NUR ---
SUN WAS DISCONTINUED PER ORDER. PATIENT WAS ENCOURAGED TO AMBULATE TO BATHROOM NEEDED
[2017-11-13 16:00] VITALS: BP 112/79
--- NOTE | 2017-11-13 16:27 | NUR ---
PATIENT VERBALIZED HE IS ABLE TO URINATE WITHOUT DIFFICULTY. WILL CONTINUE TO MONITOR
--- NOTE | 2017-11-13 17:30 | NUR ---
PATIENT AWAKE, ALERT. RESPIRATION EVEN, UNLABOR ON ROOM AIR. NO DISTRESS NOTED AT THIS TIME. CALL LIGHT WITHIN REACH
[2017-11-13] MEDS ORDERED: SAL1 PO (17:35)
--- NOTE | 2017-11-13 18:38 | NUR ---
DISCHARGE INSTRUCTION AND PRESCRIPTION WERE GIVEN TO PATIENT'S DAUGHTER DUE TO PATIENT'S MENTAL CONDITION. DAUGHTER VERBALIZED UNDERSTANDING. IVS WERE REMOVED, CATHETERS INTACT, NO ACTIVE BLEEDING SEEN, PATIENT TOLERATED WELL. ID BAND AND IGNITION EXPERT WERE REMOVED. PATIENT REFUSED PNEUMO VAC. ALL BELONGINGS AND HOME MEDS WERE TAKEN WITH PATIENT. PATIENT IS ESCORTED OUT IN WHEELCHAIR BY STAFF. PATIENT IS STABLE AT THIS TIME.
== END 2017-11-13 18:42 | disposition home or self-care (01) | DRG 205 ==
LOC: MED 23:08 → MTU 11-10 02:42
PROVIDERS: ADMIT Family Medicine Sports Medicine; ATTEND Family Medicine Sports Medicine
DX: M94.0 Chondrocostal junction syndrome [Tietze] (principal); N17.0 Acute kidney failure with tubular necrosis; G93.41 Metabolic encephalopathy; E11.65 Type 2 diabetes mellitus with hyperglycemia; D68.59 Other primary thrombophilia; E11.22 Type 2 diabetes mellitus with diabetic chronic kidney disease; R65.10 Systemic inflammatory response syndrome (SIRS) of non-infectious origin without acute organ dysfunction; E87.1 Hypo-osmolality and hyponatremia; I24.9 Acute ischemic heart disease, unspecified; E11.69 Type 2 diabetes mellitus with other specified complication; G30.9 Alzheimer's disease, unspecified; I35.0 Nonrheumatic aortic (valve) stenosis; E87.5 Hyperkalemia; I16.0 Hypertensive urgency; F02.80 Dementia in other diseases classified elsewhere, unspecified severity, without behavioral disturbance, psychotic disturbance, mood disturbance, and anxiety; Z82.49 Family history of ischemic heart disease and other diseases of the circulatory system; G89.29 Other chronic pain; I13.10 Hypertensive heart and chronic kidney disease without heart failure, with stage 1 through stage 4 chronic kidney disease, or unspecified chronic kidney disease; E83.42 Hypomagnesemia; N28.89 Other specified disorders of kidney and ureter; N40.1 Benign prostatic hyperplasia with lower urinary tract symptoms; R35.0 Frequency of micturition; E87.8 Other disorders of electrolyte and fluid balance, not elsewhere classified; R31.9 Hematuria, unspecified; M47.9 Spondylosis, unspecified; K42.9 Umbilical hernia without obstruction or gangrene; N18.3 Chronic kidney disease, stage 3 (moderate); D72.829 Elevated white blood cell count, unspecified; Z79.84 Long term (current) use of oral hypoglycemic drugs; Z79.899 Other long term (current) drug therapy; Z79.82 Long term (current) use of aspirin; Z79.02 Long term (current) use of antithrombotics/antiplatelets; Z83.3 Family history of diabetes mellitus; Z87.891 Personal history of nicotine dependence; I34.0 Nonrheumatic mitral (valve) insufficiency
CPT/HCPCS: 36415; 71045; 76700; 80048; 80053; 81001; 82150; 82570; 82948; 83036; 83690; 83735; 83880; 83930; 83935; 84100; 84300; 84439; 84443; 84484; 85025; 85610; 85730; 87040; 87081; 87086; 93005; 93925; 93970; 96360; 99285; J1815; J3475; J7030; J8597; Q0092